=== PATIENT | female | born 1940 | race Caucasian/White ===

== ENCOUNTER 2017-01-18 13:03 | Inpatient (IN) | payer MEDICARE ==
[~2017-01-18] VITALS: Ht 157.4 cm; Wt 53.6 kg
[2017-01-18] VITALS (7 sets, daily range): BP systolic 121–183; BP diastolic 59–81
[2017-01-18 13:39] LABS: BASO # 0.1 10*3/uL (0.0-0.1); BASO % 0.5 % (0.0-1.0); EOS % 0.1 % (1.0-4.0); HEMATOCRIT 40.8 % (37.0-47.0); LYMPH # 2.9 10*3/uL (1.3-4.4); LYMPH % 19.3 % (27.0-41.0); MEAN CELL VOLUME 90.1 fl (81.0-99.0); MEAN CORPUSCULAR HGB 30.9 pg (27.0-31.0); MEAN CORPUSCULAR HGB CONC 34.3 g/dl (33.0-37.0); MEAN PLATELET VOLUME 11.7 fl (9.6-12.3); MONO # 0.8 10*3/uL (0.1-1.0); MONO % 5.4 % (3.0-9.0); NEUT # 10.9 10*3/uL (2.3-7.9); NEUT % 73.9 % (47.0-73.0); PLATELET COUNT AUTOMATED 325 10*3/uL (130-400); RED BLOOD COUNT 4.53 10*6/uL (4.10-5.10); RED CELL DISTRI WIDTH 13.2 % (0-14.5); WHITE BLOOD COUNT 14.8 10*3/uL (4.8-10.8)
--- NOTE | 2017-01-18 13:48 | NUR ---
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
[2017-01-18 13:55] LABS: ALBUMIN 4.4 gm/dl (3.1-4.5); ALKALINE PHOSPHATASE 86 U/L (45-117); BUN 13 mg/dl (7-24); CHLORIDE 104 mmol/L (98-107); CREATININE 0.98 mg/dL (0.55-1.02); LIPASE 137 U/L (73-393); POTASSIUM 3.4 mmol/L (3.5-5.1); SGOT/AST 18 IU/L (3-35); SGPT/ALT 19 U/L (12-78); SODIUM 140 mmol/L (136-145); TOTAL PROTEIN 8.6 gm/dL (6.4-8.2)
--- NOTE | 2017-01-18 14:00 | NUR ---
PATIENT STATES SHE HAS HAD RELIEF FROM MORPHINE AT THIS TIME.
--- NOTE | 2017-01-18 14:50 | NUR ---
PATIENT STATES RELIEF FROM MORPHINE. STATES PAIN IS A 0/10.
[2017-01-18 15:12] LABS: BILIRUBIN NEGATIVE (NEGATIVE); BLOOD 1+ (NEGATIVE); CLARITY CLEAR (CLEAR); COLOR YELLOW (YELLOW); GLUCOSE NEGATIVE (NEGATIVE); KETONE 1+ (NEGATIVE); LEUKO ESTERASE NEGATIVE (NEGATIVE); NITRITE NEGATIVE (NEGATIVE); PH 6.5 (5.0-9.0); UROBILINOGEN 0.2 E.U./dl (0.2-1.0)
[2017-01-18 15:24] LABS: BACTERIA 1+
--- NOTE | 2017-01-18 17:05 | NUR ---
A 76, admitted to , under the services of AUBREY Rodas DO with a diagnosis of SEPSIS, ABD PAIN. Chief complaint is ABD PAIN . Patient arrived via stretcher from ER. Monitor applied. Initial assessment completed. Vital signs taken and recorded. AUBREY RODAS DO notified of admission to the unit. Orders received. See assessment for past medical history, medications and allergies. Patient and/or family oriented to unit. [facility] visitation policy reviewed. Clothing/patient valuable form completed. SIGIFREDO WHEATLEY
--- NOTE | 2017-01-18 17:10 | NUR ---
PATIENT ASSISTED TO RESTROOM UP ENTERING ADMIT ROOM ON 5TH FLOOR. REGI RN NOTIFIED OF THE PATIENT IN RESTROOM.
--- NOTE | 2017-01-18 18:01 | NUR ---
DETAILED MESSGE LEFT ON DR SUN VOICEMAIL REGARDING CONSULT
--- NOTE | 2017-01-18 18:35 | NUR ---
SPOKE WITH DR SUN REGARDING CONSULT. NO NEW ORDERS AT THIS TIME
[2017-01-19] VITALS: BP 117/47
[2017-01-19 06:48] LABS: BASO % 0.5 % (0.0-1.0); EOS % 0.5 % (1.0-4.0); HEMOGLOBIN 12.6 g/dl (12.0-16.0); LYMPH # 1.8 10*3/uL (1.3-4.4); LYMPH % 20.6 % (27.0-41.0); MEAN CELL VOLUME 95.2 fl (81.0-99.0); MEAN CORPUSCULAR HGB 31.6 pg (27.0-31.0); MEAN CORPUSCULAR HGB CONC 33.2 g/dl (33.0-37.0); MEAN PLATELET VOLUME 11.5 fl (9.6-12.3); MONO # 0.8 10*3/uL (0.1-1.0); MONO % 8.9 % (3.0-9.0); NEUT % 68.9 % (47.0-73.0); PLATELET COUNT AUTOMATED 221 10*3/uL (130-400); RED BLOOD COUNT 3.99 10*6/uL (4.10-5.10); RED CELL DISTRI WIDTH 13.4 % (0-14.5); WHITE BLOOD COUNT 8.7 10*3/uL (4.8-10.8)
[2017-01-19 07:09] LABS: ALBUMIN 3.3 gm/dl (3.1-4.5); ALKALINE PHOSPHATASE 63 U/L (45-117); BUN 10 mg/dl (7-24); CHLORIDE 109 mmol/L (98-107); CHOLESTEROL 222 mg/dL (<200); CREATININE 0.61 mg/dL (0.55-1.02); HDL CHOLESTEROL 50 mg/dl (40-60); LDL CHOLESTEROL 143 mg/dL (9-159); MAGNESIUM 1.9 mg/dL (1.5-2.1); PHOSPHOROUS 2.5 mg/dL (2.5-4.9); POTASSIUM 3.9 mmol/L (3.5-5.1); SGOT/AST 14 IU/L (3-35); SGPT/ALT 17 U/L (12-78); SODIUM 143 mmol/L (136-145); TOTAL PROTEIN 6.6 gm/dL (6.4-8.2); TRIGLYCERIDES 144 mg/dl (<150); VLDL CHOLESTEROL 29 mg/dL (6-40)
[2017-01-19 07:11] LABS: ACT PARTIAL THROMBO TIME 23.3 SECONDS (20.8-31.5)
--- NOTE | 2017-01-19 07:30 | NUR ---
ASSUMED CARE OF PT AT THIS TIME, RESPS EASY AND NONLABORED CALL LIGHT WITH IN REACH
[2017-01-19 07:49] LABS: VITAMIN D, 25-HYDROXY 14.1 ng/mL (30-100)
[2017-01-19 08:00] VITALS: BP 128/60
[2017-01-19] MEDS ORDERED: VITAMIN D-32000 UNI1 PO (10:47)
[2017-01-19] MEDS ORDERED: DOXYCYCLINE100 M3 PO (10:47)
--- NOTE | 2017-01-19 11:14 | NUR ---
Discharge instructions reviewed with patient/family. Patient receptive and verbalizes understanding. Follow-up care arranged. Written instructions given to patient/family. GURDEEP BRICE
== END 2017-01-19 11:18 | disposition home or self-care (01) | DRG 871 ==
LOC: ED 13:03 → 5E 16:15 → EDHOLD 16:15 → 5E 16:32
PROVIDERS: Family Medicine; Nurse Practitioner Family; ADMIT Internal Medicine
DX: A41.9 Sepsis, unspecified organism (principal); J18.1 Lobar pneumonia, unspecified organism; R65.20 Severe sepsis without septic shock; K80.20 Calculus of gallbladder without cholecystitis without obstruction; R73.9 Hyperglycemia, unspecified; E87.6 Hypokalemia; K43.9 Ventral hernia without obstruction or gangrene; Z90.49 Acquired absence of other specified parts of digestive tract; Z90.710 Acquired absence of both cervix and uterus; Z83.6 Family history of other diseases of the respiratory system; Z82.49 Family history of ischemic heart disease and other diseases of the circulatory system; Z80.3 Family history of malignant neoplasm of breast

== ENCOUNTER 2019-04-25 16:08 | Inpatient (IN) | payer MEDICARE ==
[~2019-04-25] VITALS: Ht 154.9 cm; Wt 53.7 kg
[~2019-04-25 16:08] MED LIST: DOXYCYCLINE100 M3 PO; VITAMIN D-32000 UNI1 PO
[2019-04-25 16:21] VITALS: BP 134/88
[2019-04-25 16:50] VITALS: BP 113/58
[2019-04-25 17:10] VITALS: BP 121/68
[2019-04-25 17:49] LABS: BASO # 0.1 10*3/uL (0.0-0.1); BASO % 0.4 % (0.0-1.0); EOS # 0.1 10*3/uL (0.0-0.4); EOS % 0.7 % (1.0-4.0); HEMATOCRIT 44.6 % (37.0-47.0); LYMPH # 1.8 10*3/uL (1.3-4.4); LYMPH % 10.8 % (27.0-41.0); MEAN CELL VOLUME 90.5 fl (81.0-99.0); MEAN CORPUSCULAR HGB 30.4 pg (27.0-31.0); MEAN CORPUSCULAR HGB CONC 33.6 g/dl (33.0-37.0); MEAN PLATELET VOLUME 11.6 fl (9.6-12.3); MONO # 1.5 10*3/uL (0.1-1.0); MONO % 9.2 % (3.0-9.0); NEUT # 12.7 10*3/uL (2.3-7.9); NEUT % 78.5 % (47.0-73.0); PLATELET COUNT AUTOMATED 315 10*3/uL (130-400); RED BLOOD COUNT 4.93 10*6/uL (4.10-5.10); WHITE BLOOD COUNT 16.2 10*3/uL (4.8-10.8)
[2019-04-25 18:06] LABS: CLARITY CLOUDY (CLEAR); COLOR YELLOW (YELLOW); GLUCOSE NEGATIVE (NEGATIVE)
[2019-04-25 18:07] LABS: BILIRUBIN 1+ (NEGATIVE); BLOOD 1+ (NEGATIVE); KETONE 1+ (NEGATIVE); LEUKO ESTERASE NEGATIVE (NEGATIVE); NITRITE NEGATIVE (NEGATIVE); SPECIFIC GRAVITY 1.025 (1.005-1.030)
[2019-04-25 18:16] LABS: ALBUMIN 4.2 gm/dl (3.1-4.5); ALKALINE PHOSPHATASE 78 U/L (45-117); BUN 44 mg/dl (7-24); CHLORIDE 101 mmol/L (98-107); CREATININE 1.15 mg/dL (0.55-1.02); POTASSIUM 3.6 mmol/L (3.5-5.1); SGOT/AST 51 IU/L (3-35); SGPT/ALT 76 U/L (12-78); SODIUM 138 mmol/L (136-145); TOTAL PROTEIN 8.5 gm/dL (6.4-8.2)
[2019-04-25 18:18] LABS: BACTERIA 2+; MUCOUS TRACE; RBC 0-2 rbc/hpf (0-2)
[2019-04-25 18:19] LABS: TROPONIN I < 0.015 ng/ml (<0.045)
--- NOTE | 2019-04-25 19:22 | NUR ---
V.O PER DR FUNK MAY GIVE ZOFRAN 4 MG IVP AT HTIS TIME. MARGARET RUBALCAVA RN.
[2019-04-25 20:15] VITALS: BP 147/93
--- NOTE | 2019-04-25 20:15 | NUR ---
A 78, admitted to , under the services of LUIS Barragan DO with a diagnosis of DEHYDRATION, GASTROENTERITIS. Chief complaint is VOMITING. Patient arrived via stretcher from ER. Monitor applied #[id number]. Initial assessment completed. Vital signs taken and recorded. LUIS BARRAGAN DO notified of admission to the unit. Orders received. See assessment for past medical history, medications and allergies. Patient and/or family oriented to unit. [address] visitation policy reviewed. Clothing/patient valuable form completed. ASSESSMENT COMPLETE. NO WOUNDS PRESENT ON ADMISSION. PT HAS NO COMPLIANTS AT THIS TIME. TIFFANIE SARGENT
[2019-04-26] VITALS: BP 135/64
--- NOTE | 2019-04-26 00:35 | NUR ---
24 HR chart check completed.
--- NOTE | 2019-04-26 03:05 | NUR ---
PRN ZOFRAN GIVEN FOR NAUSEA. WILL REASSESS EFFECTIVENESS OF MEDICATION.
--- NOTE | 2019-04-26 04:00 | NUR ---
IV ZOFRAN WAS EFFECTIVE. PT STATED THAT THE MEDICATION HELPED ALOT.
[2019-04-26 07:24] LABS: BASO # 0.1 10*3/uL (0.0-0.1); BASO % 0.6 % (0.0-1.0); EOS # 0.1 10*3/uL (0.0-0.4); EOS % 0.7 % (1.0-4.0); HEMATOCRIT 41.9 % (37.0-47.0); HEMOGLOBIN 13.8 g/dl (12.0-16.0); LYMPH # 1.3 10*3/uL (1.3-4.4); MEAN CELL VOLUME 93.3 fl (81.0-99.0); MEAN CORPUSCULAR HGB 30.7 pg (27.0-31.0); MEAN CORPUSCULAR HGB CONC 32.9 g/dl (33.0-37.0); MEAN PLATELET VOLUME 11.4 fl (9.6-12.3); MONO # 1.1 10*3/uL (0.1-1.0); MONO % 9.2 % (3.0-9.0); NEUT # 9.5 10*3/uL (2.3-7.9); NEUT % 78.1 % (47.0-73.0); PLATELET COUNT AUTOMATED 259 10*3/uL (130-400); RED BLOOD COUNT 4.49 10*6/uL (4.10-5.10); RED CELL DISTRI WIDTH 13.1 % (0-14.5); WHITE BLOOD COUNT 12.1 10*3/uL (4.8-10.8)
[2019-04-26 07:39] LABS: ALBUMIN 3.7 gm/dl (3.1-4.5); CREATININE 1.09 mg/dL (0.55-1.02); POTASSIUM 3.8 mmol/L (3.5-5.1); TOTAL PROTEIN 7.4 gm/dL (6.4-8.2)
[2019-04-26 07:57] VITALS: BP 128/68
--- NOTE | 2019-04-26 08:00 | NUR ---
24 HR chart check completed. Patient resting quietly with no c/o discomfort. Respirations easy and regular. Vital signs stable. No overt distress. NANCY JANE
--- NOTE | 2019-04-26 08:27 | NUR ---
PT RESTING COMFORTABLY IN BED WATCHING TV. NO VOICED COMPLAINTS AT THIS TIME. IOANA DUNN SPNR[facility]
--- NOTE | 2019-04-26 08:45 | NUR ---
PT C/O NAUSEA, PRN IV ZOFRAN WAS GIVEN WILL MONITOR FOR EFFECTIVENESS OF MEDICATION. PT NPO FOR CT SCAN. IOANA DUNN [facility]
--- NOTE | 2019-04-26 09:00 | NUR ---
Rn Lab in to talk to patient. Patient states lives at home with . There are 10 steps in the home. Physician: none [facility] Patient's level of ADLs: INDEPENDENT Patient has working utilities: all working DME: none Follow-up physician's appointment after d/c: will be made by hospitalist nurse director up discharge Does patient want to access PORTAL?: no Discharge plan discussed with patient, present, she lives at home with , she is independent in adls and ambulation she stated she will return home when medically stable and denies any home needs, she states she does not have a doctor that she sees on a regular basis and doesn't take any medication, case management will follow. BECKY EMMANUEL
--- NOTE | 2019-04-26 10:10 | NUR ---
PT RESTING IN BED VISITING WITH FAMILY. IV ZOFRAN WAS EFFECTIVE, PT STATES IT HELPED WITH HER NAUSEA. PT DRINKING BARIUM SULFATE FOR CT SCAN IS TOLERATING WELL, STILL NPO PER ORDER. IOANA DUNN ARTUR
--- NOTE | 2019-04-26 11:16 | NUR ---
PT HAD [address] CONTRAST AND HAD LARGE EMESIS, RADIOLOGY CALLED AND NOTIFIED, INSTRUCTED TO TRY TO GIVE ANOTHER BOTTLE TO PT, PT ATTEMPTING TO DRINK CONTRAST IOANA REICH
[2019-04-26 12:00] VITALS: BP 148/53
--- NOTE | 2019-04-26 12:12 | NUR ---
Systems Manager in to talk to patient. Patient states lives at home with philippe. There are 10 steps in the home. Physician: none [facility]: none Patient's level of ADLs: INDEPENDENT Patient has working utilities: all working DME: none Follow-up physician's appointment after d/c: will be made by hospitalist nurse director upon discharge Does patient want to access PORTAL?: no Discharge plan discussed with patient, present, she states she lives at home with her , she is independent in adls and ambulation, she doesn't have a regular doctor that she follows up with and takes no medication, she states she will return home when medically stable and denies any home needs, case management will follow. BECKY EMMANUEL
--- NOTE | 2019-04-26 12:49 | NUR ---
PT REFUSES BATH AT THIS TIME, STATES "IM AFRAID TO MOVE D/T NAUSEA". PT IS STILL TOLERATING CT CONTRAST AT THIS TIME WILL ATTEMPT TO HELP WITH BATH AT A LATER TIME. IOANA DUNN SP[facility]
--- NOTE | 2019-04-26 13:07 | NUR ---
PT TOLERATED CONTRAST WITHOUT EMESIS IOANA DUNN SPNR[facility]
--- NOTE | 2019-04-26 13:32 | NUR ---
PT WENT FOR CT SCAN VIA WHEEL CHAIR. PT PLEASENT AND COOPERATIVE. [facility] DUNN [facility]
--- NOTE | 2019-04-26 14:27 | NUR ---
BACK FROM CT SCAN IOANA DUNN SP[facility]
--- NOTE | 2019-04-26 15:00 | NUR ---
TOOK OVER CARE OF PT AT THIS TIME. PT RESTING IN BED, HOB ELEVATED. RESPIRATIONS EASY AND UNLABORED. PT DENIES EMESIS AT THIS TIME. FAMILY AT BEDSIDE. [facility]
[2019-04-26 16:00] VITALS: BP 150/55
--- NOTE | 2019-04-26 17:00 | NUR ---
[facility] RADIOLOGY CALLS CRITICAL RESULTS OF CT ABDOMEN/PELVIS TO THIS NURSE. DR MENDEZ NOTIFIED OF THESE RESULTS. WILL DR SUN REGARDING THESE FINDINGS AND CONSULT.
--- NOTE | 2019-04-26 17:20 | NUR ---
SPOKE WITH DR SUN REGARDING CONSULT. DR HOWARD A HOSPITALIST RESIDENT DR MENDEZ CALL HIM. DR SOLORZANO ANSWERS HOSPITALIST PHONE AND IS NOTIFIED OF THIS.
--- NOTE | 2019-04-26 18:00 | NUR ---
SPOKE WITH DR HORTA, NEW ORDERS RECEIVED TO HOLD ALL BLOOD THINNERS AT THIS TIME FOR PT TO HAVE SURGERY TOMORROW WITH DR SUN. NEW ORDERS GIVEN TO PASS ONTO PM SHIFT NURSE: IF PT HAS ANY ADDITIONAL EPISODES OF EMESIS THIS EVENING, AN NG TUBE IS TO BE PLACED. WILL PASS ON INFORMATION.
[2019-04-26 20:00] VITALS: BP 138/58
[2019-04-27] VITALS (10 sets, daily range): BP systolic 109–164; BP diastolic 54–85
--- NOTE | 2019-04-27 02:32 | NUR ---
24 HR chart check completed.
[2019-04-27 05:41] LABS: BASO # 0.1 10*3/uL (0.0-0.1); BASO % 0.8 % (0.0-1.0); EOS # 0.1 10*3/uL (0.0-0.4); EOS % 0.7 % (1.0-4.0); HEMATOCRIT 42.5 % (37.0-47.0); HEMOGLOBIN 13.7 g/dl (12.0-16.0); LYMPH # 1.5 10*3/uL (1.3-4.4); LYMPH % 13.1 % (27.0-41.0); MEAN CORPUSCULAR HGB CONC 32.2 g/dl (33.0-37.0); MEAN PLATELET VOLUME 11.8 fl (9.6-12.3); MONO # 1.1 10*3/uL (0.1-1.0); NEUT # 8.5 10*3/uL (2.3-7.9); NEUT % 74.8 % (47.0-73.0); PLATELET COUNT AUTOMATED 254 10*3/uL (130-400); RED BLOOD COUNT 4.57 10*6/uL (4.10-5.10); RED CELL DISTRI WIDTH 12.9 % (0-14.5); WHITE BLOOD COUNT 11.4 10*3/uL (4.8-10.8)
[2019-04-27 06:37] LABS: ALBUMIN 3.7 gm/dl (3.1-4.5); ALKALINE PHOSPHATASE 63 U/L (45-117); CHLORIDE 112 mmol/L (98-107); CHOLESTEROL 167 mg/dL (<200); CREATININE 0.85 mg/dL (0.55-1.02); HDL CHOLESTEROL 49 mg/dl (40-60); LDL CHOLESTEROL 88 mg/dL (9-159); POTASSIUM 3.6 mmol/L (3.5-5.1); SGOT/AST 63 IU/L (3-35); SGPT/ALT 74 U/L (12-78); SODIUM 142 mmol/L (136-145); TOTAL PROTEIN 7.4 gm/dL (6.4-8.2); TRIGLYCERIDES 149 mg/dl (<150); VLDL CHOLESTEROL 30 mg/dL (6-40)
[2019-04-27 06:42] LABS: BUN 27 mg/dl (7-24)
[2019-04-27 07:07] LABS: VITAMIN D, 25-HYDROXY 25.9 ng/mL (30-100)
--- NOTE | 2019-04-27 07:35 | NUR ---
OFF FLOOR FOR SURGERY.
--- NOTE | 2019-04-27 09:00 | NUR ---
case management attempted to visit with patient, she is out of room for surgery, case management will follow
--- NOTE | 2019-04-27 11:46 | NUR ---
BACK TO ROOM FROM SURGERY. VSS.
[2019-04-28] VITALS: BP 114/45
--- NOTE | 2019-04-28 00:28 | NUR ---
WASOLA PROVIDED FOR INCISIONAL PAIN RLQ, SITE IS ASYMPTOMATIC. CALL LIGHT IN REACH.
--- NOTE | 2019-04-28 02:17 | NUR ---
NORCO APPEARS EFFECTIVE, PATIENT RESTING, RESP EASY AND REGULAR ON RA. CALL LIGHT IN REACH.
[2019-04-28 06:19] LABS: BASO # 0.1 10*3/uL (0.0-0.1); BASO % 0.5 % (0.0-1.0); EOS % 0.3 % (1.0-4.0); HEMATOCRIT 35.2 % (37.0-47.0); HEMOGLOBIN 11.6 g/dl (12.0-16.0); LYMPH # 1.3 10*3/uL (1.3-4.4); MEAN CELL VOLUME 92.9 fl (81.0-99.0); MEAN CORPUSCULAR HGB 30.6 pg (27.0-31.0); MONO % 8.5 % (3.0-9.0); NEUT # 9.5 10*3/uL (2.3-7.9); NEUT % 79.5 % (47.0-73.0); PLATELET COUNT AUTOMATED 206 10*3/uL (130-400); RED BLOOD COUNT 3.79 10*6/uL (4.10-5.10); RED CELL DISTRI WIDTH 12.9 % (0-14.5)
[2019-04-28 06:35] LABS: ALBUMIN 2.9 gm/dl (3.1-4.5); BUN 18 mg/dl (7-24); CHLORIDE 111 mmol/L (98-107); CREATININE 0.65 mg/dL (0.55-1.02); POTASSIUM 3.4 mmol/L (3.5-5.1); SGOT/AST 44 IU/L (3-35); SODIUM 141 mmol/L (136-145)
[2019-04-28 06:37] LABS: ALKALINE PHOSPHATASE 62 U/L (45-117); SGPT/ALT 71 U/L (12-78); TOTAL PROTEIN 6.1 gm/dL (6.4-8.2)
[2019-04-28 08:00] VITALS: BP 122/62
--- NOTE | 2019-04-28 08:16 | NUR ---
MORNING ASSESSMENT COMPLETE, PT RESTING IN BED WITH FAMILY AT BED SIDE. NO COMPLAINTS VOICED AT THIS TIME. IOANA DUNN [facility]
--- NOTE | 2019-04-28 08:29 | NUR ---
DOCTOR WAS IN, D/C'D IV FLUIDS. IOANA DUNN [facility]
--- NOTE | 2019-04-28 09:00 | NUR ---
case management visits with patient, present, she states she will return home when medically stable and denies any home needs, was inagreement
[2019-04-28] MEDS ORDERED: HYDROCODONE-AC1 EAC1 PO (10:04)
[2019-04-28] MEDS ORDERED: COLACE100 MG PO (10:04)
--- NOTE | 2019-04-28 10:45 | NUR ---
Discharge instructions reviewed with patient/family. Patient receptive and verbalizes understanding. Follow-up care arranged. Written instructions given to patient/family, iv d/c'd, site asymptomatic, pt discharged to car via wheelchair in care of family, student accompanied pt to car, condition stable. IOANA DUNN [facility]
== END 2019-04-28 10:45 | disposition home or self-care (01) | DRG 353 ==
LOC: ED 16:08 → EDHOLD 18:57 → 4E 18:57
PROVIDERS: Emergency Medicine; Registered Nurse; Student in an Organized Health Care Education/Training Program; Surgery; ADMIT Emergency Medicine
PROC: 0WUF4JZ Supplement Abdominal Wall with Synthetic Substitute, Percutaneous Endoscopic Approach (ICD-10-PCS; principal; 2019-04-27)
DX: K43.6 Other and unspecified ventral hernia with obstruction, without gangrene (principal); N17.0 Acute kidney failure with tubular necrosis; R65.10 Systemic inflammatory response syndrome (SIRS) of non-infectious origin without acute organ dysfunction; E44.0 Moderate protein-calorie malnutrition; K56.609 Unspecified intestinal obstruction, unspecified as to partial versus complete obstruction; E55.9 Vitamin D deficiency, unspecified; E86.0 Dehydration; Z90.710 Acquired absence of both cervix and uterus; Z80.3 Family history of malignant neoplasm of breast; Z83.6 Family history of other diseases of the respiratory system; Z82.49 Family history of ischemic heart disease and other diseases of the circulatory system; Z79.899 Other long term (current) drug therapy

== ENCOUNTER → 2019-05-12 | Outpatient (CLI) | payer MEDICARE ==
[~2019-05-12] MED LIST changes: +COLACE100 MG PO; +HYDROCODONE-AC1 EAC1 PO
== END | disposition home or self-care (01) ==
LOC: RESCLI 00:23
DX: E55.9 Vitamin D deficiency, unspecified (principal); Z09 Encounter for follow-up examination after completed treatment for conditions other than malignant neoplasm; Z53.20 Procedure and treatment not carried out because of patient's decision for unspecified reasons; Z90.710 Acquired absence of both cervix and uterus; Z98.890 Other specified postprocedural states; Z79.899 Other long term (current) drug therapy

== ENCOUNTER → 2021-04-17 | Outpatient (CLI) | payer MEDICARE ==
[2021-04-17 16:00] LABS: BASO # 0.1 10*3/uL (0.0-0.1); BASO % 0.8 % (0.0-1.0); EOS # 0.1 10*3/uL (0.0-0.4); EOS % 0.9 % (1.0-4.0); HEMATOCRIT 41.4 % (37.0-47.0); LYMPH # 2.1 10*3/uL (1.3-4.4); LYMPH % 19.6 % (27.0-41.0); MEAN CELL VOLUME 92.8 fl (81.0-99.0); MEAN CORPUSCULAR HGB 29.6 pg (27.0-31.0); MEAN CORPUSCULAR HGB CONC 31.9 g/dl (33.0-37.0); MEAN PLATELET VOLUME 11.4 fl (9.6-12.3); MONO % 9.6 % (3.0-9.0); NEUT # 7.4 10*3/uL (2.3-7.9); NEUT % 68.7 % (47.0-73.0); PLATELET COUNT AUTOMATED 301 10*3/uL (130-400); RED BLOOD COUNT 4.46 10*6/uL (4.10-5.10); RED CELL DISTRI WIDTH 13.8 % (0-14.5); RETICULOCYTE % 1.34 % (0.50-2.50); WHITE BLOOD COUNT 10.8 10*3/uL (4.8-10.8)
[2021-04-17 16:06] LABS: BILIRUBIN Negative (Negative); BLOOD 2+ (Negative); CLARITY Clear (Clear); COLOR Yellow (Yellow); GLUCOSE Negative (Negative); KETONE Negative (Negative); LEUKO ESTERASE 1+ (Negative); NITRITE Negative (Negative); PH 5.5 (4.5-8.0); UROBILINOGEN 0.2 E.U./dl (0.0-1.0)
[2021-04-17 16:16] LABS: BACTERIA 1+; MUCOUS TRACE; RBC 0-2 rbc/hpf (0-2); WBC 16-20 wbc/hpf (0-5)
[2021-04-17 16:18] LABS: CHLORIDE 106 mmol/L (98-107); POTASSIUM 3.5 mmol/L (3.5-5.1); SODIUM 141 mmol/L (136-145)
[2021-04-17 16:44] LABS: ALBUMIN 3.7 gm/dl (3.1-4.5); ALKALINE PHOSPHATASE 94 U/L (45-117); BUN 12 mg/dl (7-24); CHOLESTEROL 226 mg/dL (<200); GAMMA GLUTAMYL TRANSPEPTIDASE 30 U/L (5-55); IRON 38 ug/dL (50-170); LDL CHOLESTEROL 132 mg/dL (9-159); SGOT/AST 16 IU/L (3-35); SGPT/ALT 20 U/L (12-78); TOTAL IRON BINDING CAPACITY 306 ug/dl (250-450); TOTAL PROTEIN 8.5 gm/dL (6.4-8.2); TRIGLYCERIDES 116 mg/dl (<150)
[2021-04-17 17:50] LABS: VITAMIN D, 25-HYDROXY 16.8 ng/mL (30-100)
[2021-04-17 17:51] LABS: FERRITIN 637.5 ng/mL (10.0-291.0)
[2021-04-18 14:08] LABS: ANTI-DSDNA ANTIBODIES 18 IU/mL (0-9)
== END | disposition home or self-care (01) ==
LOC: LAB 15:20
PROVIDERS: ATTEND Family Medicine
DX: E78.5 Hyperlipidemia, unspecified (principal); R74.8 Abnormal levels of other serum enzymes; R79.89 Other specified abnormal findings of blood chemistry; R53.83 Other fatigue; E55.9 Vitamin D deficiency, unspecified

== ENCOUNTER 2021-10-09 10:49 | Inpatient (IN) | payer MEDICARE ==
[~2021-10-09] VITALS: Ht 154.9 cm; Wt 52.2 kg
[2021-10-09 10:55] VITALS: BP 140/109
[2021-10-09 12:22] LABS: BASO # 0.1 10*3/uL (0.0-0.1); BASO % 0.4 % (0.0-1.0); EOS % 0.1 % (1.0-4.0); HEMATOCRIT 44.6 % (37.0-47.0); LYMPH # 1.2 10*3/uL (1.3-4.4); LYMPH % 8.3 % (27.0-41.0); MEAN CELL VOLUME 87.5 fl (81.0-99.0); MEAN CORPUSCULAR HGB 29.4 pg (27.0-31.0); MEAN CORPUSCULAR HGB CONC 33.6 g/dl (33.0-37.0); MEAN PLATELET VOLUME 11.2 fl (9.6-12.3); MONO # 1.2 10*3/uL (0.1-1.0); MONO % 8.6 % (3.0-9.0); NEUT # 11.7 10*3/uL (2.3-7.9); NEUT % 82.4 % (47.0-73.0); PLATELET COUNT AUTOMATED 344 10*3/uL (130-400); RED CELL DISTRI WIDTH 14.4 % (0-14.5); WHITE BLOOD COUNT 14.2 10*3/uL (4.8-10.8)
[2021-10-09 12:39] LABS: CREATININE 1.27 mg/dL (0.55-1.02); POTASSIUM 3.7 mmol/L (3.5-5.1); TOTAL PROTEIN 8.8 gm/dL (6.4-8.2)
[2021-10-09 14:17] VITALS: BP 131/84
[2021-10-09 15:18] LABS: BILIRUBIN Negative (Negative); BLOOD 2+ (Negative); CLARITY Clear (Clear); COLOR Yellow (Yellow); GLUCOSE Negative (Negative); KETONE Trace (Negative); LEUKO ESTERASE Trace (Negative); NITRITE Negative (Negative); SPECIFIC GRAVITY >= 1.030 (1.001-1.030); UROBILINOGEN 0.2 E.U./dl (0.0-1.0)
[2021-10-09 15:46] LABS: BACTERIA 1+; EPITHELIAL CELLS TNTC
[2021-10-09 17:01] VITALS: BP 136/67
[2021-10-09 17:35] VITALS: BP 110/93
[2021-10-09 20:00] VITALS: BP 136/61
[2021-10-10] VITALS (12 sets, daily range): BP systolic 124–176; BP diastolic 55–88
[2021-10-10 06:22] LABS: BASO # 0.1 10*3/uL (0.0-0.1); BASO % 0.5 % (0.0-1.0); EOS % 0.3 % (1.0-4.0); LYMPH # 0.8 10*3/uL (1.3-4.4); LYMPH % 7.9 % (27.0-41.0); MEAN CORPUSCULAR HGB 29.9 pg (27.0-31.0); MEAN CORPUSCULAR HGB CONC 32.8 g/dl (33.0-37.0); MEAN PLATELET VOLUME 11.7 fl (9.6-12.3); MONO # 1.3 10*3/uL (0.1-1.0); MONO % 12.4 % (3.0-9.0); NEUT # 8.1 10*3/uL (2.3-7.9); NEUT % 78.7 % (47.0-73.0); PLATELET COUNT AUTOMATED 300 10*3/uL (130-400); RED BLOOD COUNT 4.72 10*6/uL (4.10-5.10); RED CELL DISTRI WIDTH 14.6 % (0-14.5); WHITE BLOOD COUNT 10.2 10*3/uL (4.8-10.8)
[2021-10-10 06:43] LABS: CREATININE 1.27 mg/dL (0.55-1.02); FREE T4 1.51 ng/dl (0.76-1.46); POTASSIUM 3.9 mmol/L (3.5-5.1)
[2021-10-10 06:50] LABS: MEAN CELL VOLUME 91.1 fl (81.0-99.0)
[2021-10-10 06:51] LABS: THYROID STIM HORMONE (HS) 1.42 uIU/ml (0.358-4.75); TOTAL PROTEIN 7.8 gm/dL (6.4-8.2)
[2021-10-10 08:32] LABS: VITAMIN D, 25-HYDROXY 30.8 ng/mL (30-100)
[2021-10-11] VITALS (7 sets, daily range): BP systolic 124–148; BP diastolic 48–74
[2021-10-11 05:18] LABS: ALKALINE PHOSPHATASE 57 U/L (45-117); CHLORIDE 116 mmol/L (98-107); CREATININE 0.79 mg/dL (0.55-1.02); POTASSIUM 3.5 mmol/L (3.5-5.1); SGOT/AST 41 IU/L (3-35); SGPT/ALT 34 U/L (12-78); SODIUM 149 mmol/L (136-145); TOTAL PROTEIN 6.2 gm/dL (6.4-8.2)
[2021-10-11 05:19] LABS: BUN 28 mg/dl (7-24)
[2021-10-11 06:10] LABS: HEMATOCRIT 37.4 % (37.0-47.0); MEAN CELL VOLUME 92.6 fl (81.0-99.0); MEAN CORPUSCULAR HGB 30.4 pg (27.0-31.0); MEAN CORPUSCULAR HGB CONC 32.9 g/dl (33.0-37.0); MEAN PLATELET VOLUME 12.2 fl (9.6-12.3); PLATELET COUNT AUTOMATED 260 10*3/uL (130-400); RED BLOOD COUNT 4.04 10*6/uL (4.10-5.10); RED CELL DISTRI WIDTH 14.6 % (0-14.5); WHITE BLOOD COUNT 18.6 10*3/uL (4.8-10.8)
[2021-10-11 06:38] LABS: MANUAL DIFF REFLEX YES
[2021-10-11 07:16] LABS: PLATELET SUFFICIENCY NORMAL (NORMAL); TOTAL CELLS COUNTED 100 #CELLS
[2021-10-11 19:08] LABS: BUN 27 mg/dl (7-24); CHLORIDE 116 mmol/L (98-107); POTASSIUM 3.1 mmol/L (3.5-5.1); SODIUM 150 mmol/L (136-145)
[2021-10-11 19:14] LABS: CREATININE 0.78 mg/dL (0.55-1.02)
[2021-10-12 00:02] VITALS: BP 139/65
[2021-10-12 01:22] LABS: BUN 24 mg/dl (7-24); CHLORIDE 117 mmol/L (98-107); CREATININE 0.68 mg/dL (0.55-1.02); POTASSIUM 3.1 mmol/L (3.5-5.1); SODIUM 148 mmol/L (136-145)
[2021-10-12 04:02] VITALS: BP 137/61
[2021-10-12 06:02] LABS: ALKALINE PHOSPHATASE 60 U/L (45-117); BUN 23 mg/dl (7-24); CHLORIDE 116 mmol/L (98-107); CREATININE 0.67 mg/dL (0.55-1.02); SGOT/AST 23 IU/L (3-35); SGPT/ALT 24 U/L (12-78); SODIUM 147 mmol/L (136-145); TOTAL PROTEIN 6.1 gm/dL (6.4-8.2)
[2021-10-12 06:28] LABS: HEMATOCRIT 35.9 % (37.0-47.0); MEAN CELL VOLUME 95.5 fl (81.0-99.0); MEAN CORPUSCULAR HGB 30.3 pg (27.0-31.0); MEAN CORPUSCULAR HGB CONC 31.8 g/dl (33.0-37.0); MEAN PLATELET VOLUME 12.2 fl (9.6-12.3); PLATELET COUNT AUTOMATED 245 10*3/uL (130-400); RED BLOOD COUNT 3.76 10*6/uL (4.10-5.10); RED CELL DISTRI WIDTH 14.7 % (0-14.5); WHITE BLOOD COUNT 16.2 10*3/uL (4.8-10.8)
[2021-10-12 06:56] LABS: MANUAL DIFF REFLEX YES
[2021-10-12 07:18] LABS: PLATELET SUFFICIENCY NORMAL (NORMAL); TOTAL CELLS COUNTED 100 #CELLS
[2021-10-12 08:00] VITALS: BP 135/69
[2021-10-12 12:00] VITALS: BP 126/69
[2021-10-12 16:00] VITALS: BP 125/58
[2021-10-12 20:00] VITALS: BP 125/63
[2021-10-12 20:33] LABS: BUN 21 mg/dl (7-24); CHLORIDE 112 mmol/L (98-107); CREATININE 0.71 mg/dL (0.55-1.02); POTASSIUM 3.4 mmol/L (3.5-5.1); SODIUM 143 mmol/L (136-145)
[2021-10-13] VITALS: BP 127/75
[2021-10-13 05:42] LABS: ALKALINE PHOSPHATASE 67 U/L (45-117); BUN 20 mg/dl (7-24); CHLORIDE 108 mmol/L (98-107); POTASSIUM 3.4 mmol/L (3.5-5.1); SGOT/AST 21 IU/L (3-35); SGPT/ALT 21 U/L (12-78); SODIUM 142 mmol/L (136-145); TOTAL PROTEIN 6.5 gm/dL (6.4-8.2)
[2021-10-13 06:29] LABS: HEMATOCRIT 37.5 % (37.0-47.0); MEAN CORPUSCULAR HGB 29.7 pg (27.0-31.0); MEAN CORPUSCULAR HGB CONC 32.8 g/dl (33.0-37.0); MEAN PLATELET VOLUME 12.1 fl (9.6-12.3); PLATELET COUNT AUTOMATED 308 10*3/uL (130-400); RED BLOOD COUNT 4.14 10*6/uL (4.10-5.10); RED CELL DISTRI WIDTH 14.3 % (0-14.5); WHITE BLOOD COUNT 9.8 10*3/uL (4.8-10.8)
[2021-10-13 06:32] LABS: MANUAL DIFF REFLEX YES; MEAN CELL VOLUME 90.6 fl (81.0-99.0)
[2021-10-13 07:03] LABS: PLATELET SUFFICIENCY NORMAL (NORMAL); TOTAL CELLS COUNTED 100 #CELLS
[2021-10-13 08:00] VITALS: BP 125/58
[2021-10-13 12:00] VITALS: BP 123/70
[2021-10-13 16:00] VITALS: BP 130/63
[2021-10-13 20:00] VITALS: BP 137/57
[2021-10-14] VITALS: BP 141/61
[2021-10-14 05:58] LABS: ALKALINE PHOSPHATASE 75 U/L (45-117); BUN 24 mg/dl (7-24); CHLORIDE 108 mmol/L (98-107); CREATININE 0.72 mg/dL (0.55-1.02); POTASSIUM 3.4 mmol/L (3.5-5.1); SGOT/AST 23 IU/L (3-35); SGPT/ALT 22 U/L (12-78); SODIUM 144 mmol/L (136-145); TOTAL PROTEIN 6.9 gm/dL (6.4-8.2)
[2021-10-14 06:02] LABS: BASO # 0.1 10*3/uL (0.0-0.1); BASO % 0.6 % (0.0-1.0); EOS # 0.1 10*3/uL (0.0-0.4); EOS % 0.6 % (1.0-4.0); HEMATOCRIT 38.5 % (37.0-47.0); LYMPH # 2.1 10*3/uL (1.3-4.4); LYMPH % 19.3 % (27.0-41.0); MEAN CELL VOLUME 91.4 fl (81.0-99.0); MEAN CORPUSCULAR HGB 30.2 pg (27.0-31.0); MONO # 1.2 10*3/uL (0.1-1.0); MONO % 10.9 % (3.0-9.0); NEUT # 7.3 10*3/uL (2.3-7.9); NEUT % 67.2 % (47.0-73.0); PLATELET COUNT AUTOMATED 378 10*3/uL (130-400); RED BLOOD COUNT 4.21 10*6/uL (4.10-5.10); RED CELL DISTRI WIDTH 14.4 % (0-14.5); WHITE BLOOD COUNT 10.9 10*3/uL (4.8-10.8)
[2021-10-14 08:00] VITALS: BP 140/69
[2021-10-14 12:00] VITALS: BP 137/60
[2021-10-14 16:00] VITALS: BP 134/56
[2021-10-14 20:00] VITALS: BP 135/63
[2021-10-15] VITALS: BP 142/57
[2021-10-15 06:34] LABS: MEAN CELL VOLUME 91.6 fl (81.0-99.0); MEAN CORPUSCULAR HGB 29.5 pg (27.0-31.0); MEAN CORPUSCULAR HGB CONC 32.2 g/dl (33.0-37.0); MEAN PLATELET VOLUME 11.4 fl (9.6-12.3); PLATELET COUNT AUTOMATED 344 10*3/uL (130-400); RED BLOOD COUNT 4.04 10*6/uL (4.10-5.10); WHITE BLOOD COUNT 10.4 10*3/uL (4.8-10.8)
[2021-10-15 06:42] LABS: MANUAL DIFF REFLEX YES
[2021-10-15 06:57] LABS: BUN 25 mg/dl (7-24); CHLORIDE 106 mmol/L (98-107); POTASSIUM 3.2 mmol/L (3.5-5.1); SODIUM 146 mmol/L (136-145)
[2021-10-15 08:00] VITALS: BP 148/48
[2021-10-15 08:17] LABS: TOTAL CELLS COUNTED 100 #CELLS
[2021-10-15 08:18] LABS: PLATELET SUFFICIENCY NORMAL (NORMAL)
[2021-10-15 12:00] VITALS: BP 114/65
[2021-10-15 16:00] VITALS: BP 142/54
[2021-10-15 20:00] VITALS: BP 136/57
[2021-10-16] VITALS: BP 140/66
[2021-10-16 06:15] LABS: CHLORIDE 106 mmol/L (98-107); POTASSIUM 2.6 mmol/L (3.5-5.1); SODIUM 144 mmol/L (136-145)
[2021-10-16 06:23] LABS: BUN 25 mg/dl (7-24); CREATININE 0.66 mg/dL (0.55-1.02)
[2021-10-16 06:39] LABS: HEMATOCRIT 37.5 % (37.0-47.0); MEAN CELL VOLUME 90.1 fl (81.0-99.0); MEAN CORPUSCULAR HGB 29.6 pg (27.0-31.0); MEAN CORPUSCULAR HGB CONC 32.8 g/dl (33.0-37.0); MEAN PLATELET VOLUME 11.8 fl (9.6-12.3); PLATELET COUNT AUTOMATED 375 10*3/uL (130-400); RED BLOOD COUNT 4.16 10*6/uL (4.10-5.10); RED CELL DISTRI WIDTH 14.1 % (0-14.5); WHITE BLOOD COUNT 13.3 10*3/uL (4.8-10.8)
[2021-10-16 06:49] LABS: MANUAL DIFF REFLEX YES
[2021-10-16 08:00] VITALS: BP 146/61
[2021-10-16 08:10] LABS: BURR CELLS FEW; PLATELET SUFFICIENCY NORMAL (NORMAL); POLYCHROMASIA SLIGHT; TOTAL CELLS COUNTED 100 #CELLS
[2021-10-16 12:00] VITALS: BP 128/56
[2021-10-16 16:00] VITALS: BP 125/53
[2021-10-16 20:00] VITALS: BP 128/50
[2021-10-17] VITALS: BP 136/57
[2021-10-17 06:25] LABS: BUN 19 mg/dl (7-24); CHLORIDE 109 mmol/L (98-107); CREATININE 0.63 mg/dL (0.55-1.02); POTASSIUM 3.1 mmol/L (3.5-5.1); SODIUM 146 mmol/L (136-145)
[2021-10-17 06:27] LABS: HEMATOCRIT 36.3 % (37.0-47.0); MEAN CELL VOLUME 89.4 fl (81.0-99.0); MEAN CORPUSCULAR HGB 29.3 pg (27.0-31.0); MEAN CORPUSCULAR HGB CONC 32.8 g/dl (33.0-37.0); MEAN PLATELET VOLUME 11.4 fl (9.6-12.3); PLATELET COUNT AUTOMATED 333 10*3/uL (130-400); RED BLOOD COUNT 4.06 10*6/uL (4.10-5.10); RED CELL DISTRI WIDTH 14.2 % (0-14.5); WHITE BLOOD COUNT 13.1 10*3/uL (4.8-10.8)
[2021-10-17 06:39] LABS: MANUAL DIFF REFLEX YES
[2021-10-17 08:00] VITALS: BP 127/57
[2021-10-17 08:00] LABS: TOTAL CELLS COUNTED 100 #CELLS
[2021-10-17 08:01] LABS: BURR CELLS FEW; PLATELET SUFFICIENCY NORMAL (NORMAL); POLYCHROMASIA SLIGHT; TOXIC GRANULATION SLIGHT
[2021-10-17] MEDS ORDERED: LOPRESSOR25 MG PO (11:56)
[2021-10-17] MEDS ORDERED: ELIQUIS5 M1 PO ×2 (11:56)
[2021-10-17 12:00] VITALS: BP 118/57
[2021-10-17] MEDS ORDERED: XARELTO20 M1 PO (16:45)
== END 2021-10-17 12:30 | disposition home health service (06) | DRG 853 ==
LOC: ED 10:49 → EDHOLD 16:03 → 4E 16:03 → ICCU 10-10 16:25 → 5E 10-12 14:03
PROVIDERS: Internal Medicine; Physician Assistant; Student in an Organized Health Care Education/Training Program; ADMIT Internal Medicine; ATTEND Internal Medicine
PROC: 0DB98ZX Excision of Duodenum, Via Natural or Artificial Opening Endoscopic, Diagnostic (ICD-10-PCS; principal; 2021-10-10)
PROC: 0DJD4ZZ Inspection of Lower Intestinal Tract, Percutaneous Endoscopic Approach (ICD-10-PCS; 2021-10-10)
PROC: 0DC80ZZ Extirpation of Matter from Small Intestine, Open Approach (ICD-10-PCS; 2021-10-10)
PROC: 0DQB0ZZ Repair Ileum, Open Approach (ICD-10-PCS; 2021-10-10)
PROC: 0FT40ZZ Resection of Gallbladder, Open Approach (ICD-10-PCS; 2021-10-10)
PROC: 0DB60ZZ Excision of Stomach, Open Approach (ICD-10-PCS; 2021-10-10)
PROC: 0DB90ZZ Excision of Duodenum, Open Approach (ICD-10-PCS; 2021-10-10)
PROC: 3E0T3BZ Introduction of Anesthetic Agent into Peripheral Nerves and Plexi, Percutaneous Approach (ICD-10-PCS; 2021-10-10)
PROC: 3E0T33Z Introduction of Anti-inflammatory into Peripheral Nerves and Plexi, Percutaneous Approach (ICD-10-PCS; 2021-10-10)
DX: A41.9 Sepsis, unspecified organism (principal); N17.0 Acute kidney failure with tubular necrosis; K75.0 Abscess of liver; K56.609 Unspecified intestinal obstruction, unspecified as to partial versus complete obstruction; E87.2 Acidosis; E87.0 Hyperosmolality and hypernatremia; K57.00 Diverticulitis of small intestine with perforation and abscess without bleeding; K56.3 Gallstone ileus; K80.00 Calculus of gallbladder with acute cholecystitis without obstruction; R31.9 Hematuria, unspecified; R73.9 Hyperglycemia, unspecified; K82.A1 Gangrene of gallbladder in cholecystitis; R65.20 Severe sepsis without septic shock; K76.0 Fatty (change of) liver, not elsewhere classified; I49.9 Cardiac arrhythmia, unspecified; I48.0 Paroxysmal atrial fibrillation; E83.51 Hypocalcemia; E87.6 Hypokalemia; Z90.49 Acquired absence of other specified parts of digestive tract; Z90.710 Acquired absence of both cervix and uterus; Z82.49 Family history of ischemic heart disease and other diseases of the circulatory system; Z83.6 Family history of other diseases of the respiratory system; Z80.3 Family history of malignant neoplasm of breast; Z68.21 Body mass index [BMI] 21.0-21.9, adult

== ENCOUNTER → 2022-01-21 | Outpatient (CLI) | payer MEDICARE ==
[~2022-01-21] MED LIST changes: +ELIQUIS5 M1 PO; +LOPRESSOR25 MG PO; +XARELTO20 M1 PO
== END | disposition home or self-care (01) ==
LOC: RESCLI 02:01
PROVIDERS: ATTEND Internal Medicine
DX: I48.91 Unspecified atrial fibrillation (principal); I10 Essential (primary) hypertension; E55.9 Vitamin D deficiency, unspecified; Z90.710 Acquired absence of both cervix and uterus; Z98.890 Other specified postprocedural states; Z79.01 Long term (current) use of anticoagulants; Z79.899 Other long term (current) drug therapy

== ENCOUNTER → 2022-07-22 | Outpatient (CLI) | payer MEDICARE | END | disposition home or self-care (01) | LOC: RESCLI 01:50 | PROVIDERS: ATTEND Internal Medicine | DX: I10 Essential (primary) hypertension (principal); I48.91 Unspecified atrial fibrillation; Z98.890 Other specified postprocedural states; Z90.710 Acquired absence of both cervix and uterus; Z79.899 Other long term (current) drug therapy ==

== ENCOUNTER → 2023-03-28 | Outpatient (CLI) | payer MEDICARE ==
[2023-03-28 09:25] LABS: BASO # 0.1 10*3/uL (0.0-0.1); BASO % 0.8 % (0.0-1.0); EOS # 0.1 10*3/uL (0.0-0.4); EOS % 1.4 % (1.0-4.0); HEMATOCRIT 41.6 % (37.0-47.0); LYMPH # 1.7 10*3/uL (1.3-4.4); LYMPH % 23.5 % (27.0-41.0); MEAN CELL VOLUME 94.8 fl (81.0-99.0); MEAN CORPUSCULAR HGB 30.3 pg (27.0-31.0); MEAN PLATELET VOLUME 11.3 fl (9.6-12.3); MONO # 0.6 10*3/uL (0.1-1.0); MONO % 8.9 % (3.0-9.0); NEUT # 4.7 10*3/uL (2.3-7.9); PLATELET COUNT AUTOMATED 252 10*3/uL (130-400); RED BLOOD COUNT 4.39 10*6/uL (4.10-5.10); RED CELL DISTRI WIDTH 13.2 % (0-14.5); RETICULOCYTE % 1.76 % (0.50-2.50); WHITE BLOOD COUNT 7.2 10*3/uL (4.8-10.8)
[2023-03-28 09:27] LABS: BILIRUBIN Negative (Negative); BLOOD 2+ (Negative); CLARITY Clear (Clear); COLOR Yellow (Yellow); GLUCOSE Negative (Negative); KETONE Negative (Negative); LEUKO ESTERASE Trace (Negative); NITRITE Negative (Negative); PH 5.5 (4.5-8.0); UROBILINOGEN 0.2 E.U./dl (0.0-1.0)
[2023-03-28 09:53] LABS: ALKALINE PHOSPHATASE 73 U/L (46-116); BUN 11 mg/dl (9-23); CHLORIDE 109 mmol/L (98-107); CHOLESTEROL 206 mg/dL (<200); GAMMA GLUTAMYL TRANSPEPTIDASE 18 U/L (0-73); LDL CHOLESTEROL 127 mg/dL (9-159); POTASSIUM 3.7 mmol/L (3.4-5.1); SGPT/ALT 8 U/L (5-49); THYROXINE (T4) TOTAL 10.1 ug/dl (4.5-10.9); TOTAL PROTEIN 7.6 gm/dL (6.0-8.0); TRIGLYCERIDES 155 mg/dl (<150)
[2023-03-28 11:38] LABS: EPITHELIAL CELLS 0-2
== END | disposition home or self-care (01) ==
LOC: LAB 08:36
PROVIDERS: ATTEND Family Medicine
DX: E55.9 Vitamin D deficiency, unspecified (principal); R79.89 Other specified abnormal findings of blood chemistry; R53.83 Other fatigue; E78.5 Hyperlipidemia, unspecified

== ENCOUNTER → 2023-07-14 | Outpatient (CLI) | payer MEDICARE | END | disposition home or self-care (01) | LOC: RESCLI 03:06 | PROVIDERS: ATTEND Internal Medicine | DX: K21.9 Gastro-esophageal reflux disease without esophagitis (principal); I48.91 Unspecified atrial fibrillation; I10 Essential (primary) hypertension; E55.9 Vitamin D deficiency, unspecified; Z98.890 Other specified postprocedural states; Z79.899 Other long term (current) drug therapy ==

== ENCOUNTER → 2024-06-08 | Outpatient (CLI) | payer MEDICARE ==
[~2024-06-08] MED LIST changes: +MECLIZINE HCL25 M2 PO; +OMNICEF300 MG PO; +ZITHROMAX250 MG PO
== END | disposition home or self-care (01) ==
LOC: RAD 09:52
PROVIDERS: ATTEND Family Medicine
DX: R06.02 Shortness of breath (principal); I70.0 Atherosclerosis of aorta